=== PATIENT | male | born 1985 | race Caucasian/White ===

== ENCOUNTER 2024-02-11 13:47 | Emergency (ER) | payer SELFPAY ==
[2024-02-11] MEDS: Diphtheria,Pertussis(Acell),Tetanus Vaccine 0.5 ML Syringe IM ONE (16:16)
[2024-02-11] MEDS: Lidocaine 1% 5 ML VIAL INJECT ONE (16:16)
== END 2024-02-11 16:44 | disposition home or self-care (01) ==
LOC: MW.ED 13:47
DX: S01.511A Laceration without foreign body of lip, initial encounter (principal); Z75.8 Other problems related to medical facilities and other health care; W29.8XXA Contact with other powered hand tools and household machinery, initial encounter
CPT/HCPCS: 12011; 99282; 99283; J3490